=== PATIENT | female | born 1940 | race Caucasian/White ===

== ENCOUNTER 2021-07-12 06:03 | Inpatient (IN) ==
[~2021-07-12 06:03] MED LIST: DIAZEPAM 5 MG TABLET PO ONE; SODIUM CHLORIDE 0.9% 1,000 ML IV SCH; ceFAZolin 1,000 MG VIAL IRRIG ONE; diphenhydrAMINE CAP 25 MG CAPSULE PO ONE
[2021-07-12] MEDS ORDERED: diphenhydrAMINE CAP 25 MG CAPSULE ONE (07:10)
[2021-07-12] MEDS ORDERED: DIAZEPAM 5 MG TABLET ONE (07:10)
[2021-07-12 07:14] LABS: Basophils % 0.5 % (0.0-0.8); Eosinophils # 0.2 10*3/uL (0.0-0.87); Eosinophils % 4.6 % (0.00-10.9); Hematocrit 40.7 VOL% (35.7-47.0); Hemoglobin 13.4 GM/DL (12.0-16.0); Immature Granulocytes % 0.3 %; Immature Granulocytes Absolute 0.01 #; Mean Corpuscular HGB Conc 32.9 GM/DL (32-36); Mean Corpuscular Volume 91.5 FL (87-102); Mean Platelet Volume 10.1 FL (9.6-12.0); Monocytes % 11.4 % (1.7-12.7); Neutrophils % 55.2 % (38.7-73.9); Platelet Count 149 T/CUMM (130-400); Red Blood Count 4.45 MC/CUMM (3.8-5.5); Red Cell Distribution Width 13.4 % (9.3-17.3); White Blood Count 3.7 T/CUMM (4-12)
[2021-07-12] MEDS ORDERED: MIDAZOLAM 2 MG/2 ML VIAL ONE (07:28)
[2021-07-12] MEDS ORDERED: LIDOCAINE 1% 20 ML VIAL ONE (07:28)
[2021-07-12] MEDS ORDERED: ceFAZolin 1,000 MG VIAL ONE (07:28)
[2021-07-12] MEDS ORDERED: fentaNYL 100 MCG/2 ML VIAL ONE (07:28)
[2021-07-12] MEDS ORDERED: HEPARIN/NACL 0.9% 2 UNITS/ML 1,000 UNIT/500 ML BAG IV ONE (07:28)
[2021-07-12 07:30] LABS: Calcium 10.2 MG/DL (8.5-10.1); Osmolality,Calculated 278.4 MOS/KG (273-304); Potassium 3.9 MMOL/L (3.5-5.1)
[2021-07-12] MEDS ORDERED: TISSUE ADHESIVE 1 EACH APPLICATOR TOP ONE ×2 (08:49→09:04)
[2021-07-12] MEDS ORDERED: DOXYLAMINE SUCCINATE 25 MG PO PRN (09:10)
[2021-07-12] MEDS ORDERED: ONDANSETRON 4 MG/2 ML VIAL IV PRN (12:35)
[2021-07-12] MEDS ORDERED: SODIUM CHLORIDE 0.45% 1,000 ML IV SCH (14:00)
[2021-07-12] MEDS: DENOSUMAB 60 MG/ML SUBCUT SCH (15:19)
[2021-07-12 16:06] LABS: Basophils % 0.3 % (0.0-0.8); Eosinophils # 0.1 10*3/uL (0.0-0.87); Eosinophils % 1.6 % (0.00-10.9); Hematocrit 34.6 VOL% (35.7-47.0); Hemoglobin 11.4 GM/DL (12.0-16.0); Immature Granulocytes % 0.3 %; Immature Granulocytes Absolute 0.02 #; Lymphocytes # 0.7 10*3/uL (1.4-4.0); Lymphocytes % 10.6 % (21.3-54.2); Mean Corpuscular HGB Conc 32.9 GM/DL (32-36); Mean Corpuscular Volume 92.5 FL (87-102); Mean Platelet Volume 10.2 FL (9.6-12.0); Monocytes % 9.1 % (1.7-12.7); Neutrophils % 78.1 % (38.7-73.9); Platelet Count 126 T/CUMM (130-400); Red Blood Count 3.74 MC/CUMM (3.8-5.5); Red Cell Distribution Width 13.4 % (9.3-17.3); White Blood Count 6.7 T/CUMM (4-12)
[2021-07-12] MEDS ORDERED: KETOROLAC 10 MG TABLET PO PRN (20:34)
[2021-07-12] MEDS ORDERED: ASPIRIN EC 81 MG TABLET PO PRN (20:49)
[2021-07-12] MEDS ORDERED: CALCIUM CARBONATE 600 MG PO SCH (21:00)
[2021-07-12] MEDS ORDERED: MAGNESIUM 200 MG PO SCH (21:00)
[2021-07-12] MEDS: CALCIUM (CARBONATE) 500 MG TABLET PO SCH (22:46)
[2021-07-12] MEDS: MAGNESIUM CHLORIDE 64 MG TABLET PO SCH (22:46)
[2021-07-13] MEDS ORDERED: MORPHINE 2 MG/1 ML SYRINGE ONE ×2 (01:16→04:36)
[2021-07-13] MEDS ORDERED: NITROGLYCERIN SL 0.4 MG TABLET SL ONE (01:16)
[2021-07-13] MEDS ORDERED: NITROGLYCERIN SL 0.4 MG TABLET SL PRN (01:20)
[2021-07-13] MEDS: KETOROLAC 15 MG/1 ML VIAL IV PRN ×2 (02:46→23:46)
[2021-07-13] MEDS ORDERED: MORPHINE 2 MG/1 ML SYRINGE IV PRN (04:33)
[2021-07-13 05:39] LABS: Basophils % 0.4 % (0.0-0.8); Eosinophils % 0.4 % (0.00-10.9); Hemoglobin 10.8 GM/DL (12.0-16.0); Immature Granulocytes % 0.4 %; Immature Granulocytes Absolute 0.03 #; Lymphocytes # 0.8 10*3/uL (1.4-4.0); Lymphocytes % 10.2 % (21.3-54.2); Mean Corpuscular HGB Conc 32.7 GM/DL (32-36); Mean Corpuscular Volume 93.5 FL (87-102); Mean Platelet Volume 10.6 FL (9.6-12.0); Monocytes % 10.1 % (1.7-12.7); Neutrophils % 78.5 % (38.7-73.9); Platelet Count 134 T/CUMM (130-400); Red Blood Count 3.53 MC/CUMM (3.8-5.5); Red Cell Distribution Width 13.5 % (9.3-17.3); White Blood Count 7.8 T/CUMM (4-12)
[2021-07-13 06:17] LABS: Calcium 9.2 MG/DL (8.5-10.1); Osmolality,Calculated 287.1 MOS/KG (273-304); Potassium 3.7 MMOL/L (3.5-5.1)
[2021-07-13] MEDS: LEVOTHYROXINE 25 MCG TABLET PO SCH (06:28)
[2021-07-13] MEDS ORDERED: CHOLECALCIFEROL 1,000 UNIT TABLET PO SCH (09:00)
[2021-07-13] MEDS ORDERED: ASPIRIN EC 81 MG TABLET PO SCH (09:00)
[2021-07-13] MEDS ORDERED: CLOPIDOGREL 75 MG TABLET PO SCH (09:00)
[2021-07-13] MEDS ORDERED: METOPROLOL TARTRATE 25 MG TABLET PO SCH (09:00)
[2021-07-13] MEDS: MAGNESIUM CHLORIDE 64 MG TABLET PO SCH ×2 (10:38→21:01)
[2021-07-13] MEDS: CALCIUM (CARBONATE) 500 MG TABLET PO SCH ×2 (10:38→21:02)
[2021-07-13] MEDS: DENOSUMAB 60 MG/ML SUBCUT SCH (10:39)
[2021-07-13] MEDS ORDERED: ceFAZolin 1,000 MG VIAL IRRIG ONE (10:42)
[2021-07-13] MEDS ORDERED: SODIUM CHLORIDE 0.9% 1,000 ML IV SCH (11:00)
[2021-07-13 11:44] LABS: Calcium 9.9 MG/DL (8.5-10.1); Osmolality,Calculated 285.3 MOS/KG (273-304); Potassium 3.9 MMOL/L (3.5-5.1)
[2021-07-13] MEDS ORDERED: ceFAZolin 1,000 MG VIAL ONE ×2 (11:44)
[2021-07-13] MEDS ORDERED: HEPARIN/NACL 0.9% 2 UNITS/ML 1,000 UNIT/500 ML BAG IV ONE (11:44)
[2021-07-13] MEDS ORDERED: LIDOCAINE 1% 20 ML VIAL ONE (11:44)
[2021-07-13] MEDS ORDERED: DIAZEPAM 5 MG TABLET PO ONE (12:00)
[2021-07-13] MEDS ORDERED: diphenhydrAMINE CAP 25 MG CAPSULE PO ONE (12:00)
[2021-07-13] MEDS ORDERED: LIDOCAINE 1%/EPI INJ 20 ML VIAL ONE (12:02)
[2021-07-13] MEDS ORDERED: fentaNYL 100 MCG/2 ML VIAL ONE (12:23)
[2021-07-13] MEDS ORDERED: MIDAZOLAM 2 MG/2 ML VIAL ONE (12:23)
[2021-07-13] MEDS ORDERED: TISSUE ADHESIVE 1 EACH APPLICATOR TOP ONE ×2 (12:58→13:39)
[2021-07-13] MEDS: ASPIRIN EC 81 MG TABLET PO SCH (21:02)
[2021-07-13] MEDS: CLOPIDOGREL 75 MG TABLET PO SCH (21:02)
[2021-07-13] MEDS: CHOLECALCIFEROL 1,000 UNIT TABLET PO SCH (21:02)
[2021-07-14] MEDS ORDERED: METOPROLOL TARTRATE 25 MG TABLET PO ONE (00:36)
[2021-07-14] MEDS ORDERED: METOPROLOL TARTRATE 5 MG/5 ML VIAL IV PRN (00:37)
[2021-07-14 05:41] LABS: Basophils % 0.3 % (0.0-0.8); Eosinophils # 0.1 10*3/uL (0.0-0.87); Eosinophils % 0.8 % (0.00-10.9); Hematocrit 27.9 VOL% (35.7-47.0); Hemoglobin 8.8 GM/DL (12.0-16.0); Immature Granulocytes % 0.6 %; Immature Granulocytes Absolute 0.04 #; Lymphocytes # 1.1 10*3/uL (1.4-4.0); Lymphocytes % 15.8 % (21.3-54.2); Mean Corpuscular HGB Conc 31.5 GM/DL (32-36); Mean Corpuscular Volume 94.6 FL (87-102); Mean Platelet Volume 10.7 FL (9.6-12.0); Monocytes % 12.4 % (1.7-12.7); Neutrophils % 70.1 % (38.7-73.9); Platelet Count 118 T/CUMM (130-400); Red Blood Count 2.95 MC/CUMM (3.8-5.5); Red Cell Distribution Width 13.8 % (9.3-17.3); White Blood Count 6.6 T/CUMM (4-12)
[2021-07-14 06:21] LABS: Anisocytosis 1+; Platelet Estimate Adequate
[2021-07-14] MEDS: LEVOTHYROXINE 25 MCG TABLET PO SCH (07:18)
[2021-07-14] MEDS: DENOSUMAB 60 MG/ML SUBCUT SCH (08:57)
[2021-07-14] MEDS: CALCIUM (CARBONATE) 500 MG TABLET PO SCH ×2 (08:58→20:39)
[2021-07-14] MEDS: MAGNESIUM CHLORIDE 64 MG TABLET PO SCH ×2 (08:58→20:38)
[2021-07-14] MEDS: ASCORBIC ACID 500 MG TABLET PO SCH ×2 (11:17→20:38)
[2021-07-14] MEDS ORDERED: DOCUSATE SODIUM 100 MG CAPSULE PO PRN (13:19)
[2021-07-14] MEDS ORDERED: MAGNESIUM HYDROXIDE SUSP 30 ML UDCUP PO ONE (13:19)
[2021-07-14] MEDS: KETOROLAC 15 MG/1 ML VIAL IV PRN (20:39)
[2021-07-14] MEDS: ASPIRIN EC 81 MG TABLET PO SCH (20:39)
[2021-07-14] MEDS: CHOLECALCIFEROL 1,000 UNIT TABLET PO SCH (20:39)
[2021-07-14] MEDS: CLOPIDOGREL 75 MG TABLET PO SCH (20:39)
[2021-07-15] MEDS: LEVOTHYROXINE 25 MCG TABLET PO SCH (06:08)
[2021-07-15] MEDS: DENOSUMAB 60 MG/ML SUBCUT SCH (08:51)
[2021-07-15] MEDS: ASCORBIC ACID 500 MG TABLET PO SCH ×2 (08:55→20:45)
[2021-07-15] MEDS: MAGNESIUM CHLORIDE 64 MG TABLET PO SCH ×2 (08:55→20:45)
[2021-07-15] MEDS: CALCIUM (CARBONATE) 500 MG TABLET PO SCH ×2 (08:55→20:45)
[2021-07-15] MEDS ORDERED: METOPROLOL TARTRATE 5 MG/5 ML VIAL IV ONE (10:25)
[2021-07-15] MEDS ORDERED: METOPROLOL TARTRATE 25 MG TABLET PO SCH (11:30)
[2021-07-15] MEDS ORDERED: ACETAMINOPHEN 325 MG TABLET PO PRN (12:18)
[2021-07-15] MEDS: CHOLECALCIFEROL 1,000 UNIT TABLET PO SCH (20:45)
[2021-07-15] MEDS: ASPIRIN EC 81 MG TABLET PO SCH (20:45)
[2021-07-15] MEDS: CLOPIDOGREL 75 MG TABLET PO SCH (20:45)
[2021-07-16] MEDS: LEVOTHYROXINE 25 MCG TABLET PO SCH (06:12)
[2021-07-16 07:04] LABS: Basophils % 0.5 % (0.0-0.8); Eosinophils # 0.2 10*3/uL (0.0-0.87); Eosinophils % 5.4 % (0.00-10.9); Hematocrit 27.2 VOL% (35.7-47.0); Hemoglobin 8.8 GM/DL (12.0-16.0); Immature Granulocytes % 0.5 %; Immature Granulocytes Absolute 0.02 #; Lymphocytes # 0.8 10*3/uL (1.4-4.0); Lymphocytes % 19.6 % (21.3-54.2); Mean Corpuscular HGB Conc 32.4 GM/DL (32-36); Mean Corpuscular Volume 93.2 FL (87-102); Mean Platelet Volume 10.2 FL (9.6-12.0); Monocytes % 10.7 % (1.7-12.7); Neutrophils % 63.3 % (38.7-73.9); Platelet Count 128 T/CUMM (130-400); Red Blood Count 2.92 MC/CUMM (3.8-5.5); Red Cell Distribution Width 13.2 % (9.3-17.3); White Blood Count 4.3 T/CUMM (4-12)
[2021-07-16 07:19] LABS: Calcium 10.1 MG/DL (8.5-10.1); Osmolality,Calculated 281.4 MOS/KG (273-304); Potassium 3.7 MMOL/L (3.5-5.1)
[2021-07-16 07:51] LABS: Platelet Estimate Adequate
[2021-07-16 07:52] LABS: Anisocytosis 2+; Macrocytosis Slight
[2021-07-16] MEDS ORDERED: FERROUS SULFATE 325 MG TABLET PO SCH (09:00)
[2021-07-16] MEDS ORDERED: METOPROLOL SUCCINATE XL 25 MG TABLET PO SCH (09:00)
[2021-07-16] MEDS: ASCORBIC ACID 500 MG TABLET PO SCH (09:03)
[2021-07-16] MEDS: MAGNESIUM CHLORIDE 64 MG TABLET PO SCH (09:17)
[2021-07-16] MEDS: DENOSUMAB 60 MG/ML SUBCUT SCH (09:17)
[2021-07-16] MEDS: CALCIUM (CARBONATE) 500 MG TABLET PO SCH (09:17)
[2021-07-16 13:58] VITALS: BP 113/63
== END 2021-07-16 17:32 | disposition home or self-care (01) | DRG 243 ==
LOC: N.CL 06:03 → N.TELEN 14:54 → N.ICU 07-13 05:13 → N.TELEN 07-14 14:06
PROVIDERS: ADMIT Internal Medicine Cardiovascular Disease; ATTEND Internal Medicine Cardiovascular Disease